=== PATIENT | female | born 1965 | race Caucasian/White ===

== ENCOUNTER → 2017-11-05 | Outpatient (CLI) | payer OTHER | LOC: CIMAGING 07:43 | PROVIDERS: ATTEND Family Medicine | DX: Z12.31 Encounter for screening mammogram for malignant neoplasm of breast (principal) ==

== ENCOUNTER 2018-04-30 12:08 | Emergency (ER) | payer OTHER ==
[2018-04-30] MEDS ORDERED: KETOROLAC 15 MG/1 ML SDV IM ONE (12:44)
--- NOTE | 2018-04-30 13:05 | EDPHY ---
H & P Stated Complaint: Wednesday, with left buttucks pain radiates into leg Time Seen by Provider: 04/30/18 12:25 HPI/ROS: CHIEF COMPLAINT: Buttock pain, leg pain HISTORY OF PRESENT ILLNESS: 53-year-old female with no prior history of lumbar spine pain or back pain presents reporting that on Wednesday she woke with the pain deep in her left buttock. Pain seems to be related to certain movements, is worse when she has to walk up steps or step-down onto the leg. She cannot recall any specific injury although she had been doing deep squats several days consistently prior to the development of this pain. She has been using ibuprofen with some relief. She woke this morning feeling quite uncomfortable deep in the buttock with also pain on the back of her hamstrings and side of her left calf. She denies any numbness or tingling in the leg. She denies any weakness in the leg. Discomfort in the back of the thigh and in the calf do not have a electric component or a sharp shooting component but she describes a deep, achy, discomfort. No right leg symptoms. No flank pain. No lower lumbar spine pain. No history of his back pain. No urinary complaints. No fevers or chills. No bowel or bladder incontinence or constipation. No fevers or chills, shortness of breath, leg swelling, rash. REVIEW OF SYSTEMS: A comprehensive 10 system review of systems was reviewed and is otherwise negative aside from elements mentioned in the history of present illness and medical decision making. PAST MEDICAL HISTORY: History of atrial fibrillation, on metoprolol and aspirin. No prior history of DVTs or PEs. SOCIAL HISTORY: Nonsmoker. VITAL SIGNS Reviewed by me. GENERAL: Well-developed, well-nourished, resting comfortably in no respiratory distress. Uncomfortable when walking and moving about the bed. HEENT: Atraumatic. Eyes: No icterus, no injection. Mouth: moist mucous membranes. No erythema or lesions. Neck: supple with no adenopathy. LUNGS: Clear to auscultation bilaterally, no wheezes, rhonchi or rales. CARDIAC: Regular rate and rhythm, no rubs, murmurs or gallops. ABDOMEN: Soft, nontender, nondistended, bowel sounds normal. BACK: No trauma is noted. No tenderness to palpation along the spine. No CVA tenderness. No rash. Patient indicates tenderness to palpation deep in the left buttock, over the rami. No limitation of range of motion, no pain with internal or external rotation at the hip. Pelvis is stable. Neurological exam: Straight leg raise test is negative bilaterally. Hip flexion, knee extension, knee flexion, dorsiflexion and plantar flexion are 5/ 5 bilaterally. EHL 5 over 5. Sensation is intact to light touch throughout. 2 + knee and ankle jerk bilaterally. Vascular exam: Dorsalis pedis and posterior tibial pulses are intact. Brisk capillary refill. EXTREMITIES: No trauma. No edema. Range of motion is normal throughout. NEURO: Alert and oriented, grossly nonfocal. SKIN: Warm and dry, no rash. PSYCHIATRIC: Normal mentation, no agitation. - Personal History LMP (Females 10-55): Irregular Current Tetanus/Diphtheria Vaccine: Unsure Current Tetanus Diphtheria and Acellular Pertussis (TDAP): Unsure - Medical/Surgical History Hx Asthma: No Hx Chronic Respiratory Disease: No Hx Diabetes: No Hx Cardiac Disease: Yes Hx Renal Disease: No Hx Cirrhosis: No Hx Alcoholism: No Hx HIV/AIDS: No Hx Splenectomy or Spleen Trauma: No Other PMH: afib. ortho surg knee b - Social History Smoking Status: Never smoked Constitutional: Initial Vital Signs Temperature (C) 36.7 C 04/30/18 12:15 Heart Rate 63 04/30/18 12:15 Respiratory Rate 16 04/30/18 12:15 Blood Pressure 110/75 04/30/18 12:15 O2 Sat (%) 93 04/30/18 12:15 O2 Delivery Mode Room Air Allergies/Adverse Reactions: erythromycin base Allergy (Verified 04/30/18 12:23) Home Medications: Medication Instructions Recorded Aspirin 81mg (*) 04/30/18 Cyclobenzaprine [Flexeril 10 MG 10 mg PO TID PRN #20 tab 04/30/18 (RX)] Hydrocodone/APAP 5/325 [[place] 1 tab PO Q6H PRN #10 tab 04/30/18 5/325 (RX)] Metoprolol Tartrate 04/30/18 Medical Decision Making - Diagnostics Imaging Results: Xray: Pelvis x-ray was obtained. I viewed the images myself on the PACS system. My interpretation of the images is: Negative for avulsion fractures. The radiology interpretation is: Pending. I discussed the results with the patient. ED Course/Re-evaluation: 53-year-old female presents with onset of pain over her inferior rami with radiation of pain into the lower leg. No acute trauma. No prior history of back issues. Normal neurologic exam. No swelling. Doubt deep venous thrombus. Doubt acute disc herniation. Treated with pain medications and symptomatic care. Close follow-up. Differential Diagnosis: Differential diagnoses for the patient's symptom complex was considered including but not limited to hamstring strain, avulsion fracture, sciatica, radicular back pain. - Data Points Medications Given: Discontinued Medications Ketorolac Tromethamine (Toradol) 30 mg IM EDNOW ONE Stop: 04/30/18 12:45 Last Admin: 04/30/18 13:11 Dose: 30 mg Departure - Departure Disposition: Home, Routine, Self-Care Clinical Impression: Radicular pain of lower extremity Condition: Good Instructions: Hydrocodone/Acetaminophen (By mouth), Cyclobenzaprine (By mouth) , Sciatica (ED), Lumbar Radiculopathy (ED) Additional Instructions: I believe your pain is musculoskeletal in etiology. It may be due to strain or tearing of the hamstrings where they insert on the pubic rami with swelling. It may be due to irritation of the sciatic nerve. Mainstay of therapy is rest, ice, gentle stretching, and nonsteroidal anti- inflammatories for pain and to decrease swelling. Apply ice for 20-30 minutes every 2-3 hours for the next 48 hours. I recommend Ibuprofen (Motrin, Advil) or Naproxen Sodium (Aleve) for pain and anti-inflammatory effects. You may take either one, but do not take both. Your dose is: Ibuprofen 600 mg every 6-8 hours with food. OR Naproxen Sodium (Aleve) 220 mg every 12 hours. Okay to use hydrocodone as needed for severe pain. You been given a prescription for Flexeril. You may try this if it feels like the area has a significant amount of muscle spasm in the buttocks. Followup with your primary care physician within the next 4-5 days if you're not improving and be seen sooner if you're worse. Consider physical therapy follow-up as well. Referrals: Silvia Tse MD [Primary Care Provider] - As per Instructions Prescriptions: Cyclobenzaprine [Flexeril 10 MG (RX)] 10 mg PO TID PRN #20 tab PRN Reason: Muscle Spasms Hydrocodone/APAP 5/325 [[place] 5/325 (RX)] 1 tab PO Q6H PRN #10 tab PRN Reason: Pain
[2018-04-30 13:20] VITALS: BP 123/74
== END 2018-04-30 13:13 | disposition home or self-care (01) ==
LOC: CED 12:08
DX: M54.16 Radiculopathy, lumbar region (principal); I48.91 Unspecified atrial fibrillation; Z79.899 Other long term (current) drug therapy
CPT/HCPCS: 72170-PO; J1885